=== PATIENT | male | born 1960 | race Caucasian/White ===

== ENCOUNTER 2024-04-25 09:20 | Emergency (ER) | payer MEDICARE, SELFPAY ==
--- NOTE | ~2024-04-25 | CT_ITS ---
Non-contrast Head CT History: Head injury Technique: Axial non-contrast imaging of the brain was performed. Dose reduction technique was used on this scan by utilizing automated exposure control and iterative reconstruction technique. The dose -length product (DLP) was 681.00 mGy-cm. Findings: There is no evidence of intracranial hemorrhage, mass lesion, or acute infarct. Brain par enchyma appears normal. The ventricles and subarachnoid spaces are normal in size. The calvarium ap pears normal. The visualized paranasal sinuses and mastoid air cells are clear. Impression: No significant abnormality seen. Reviewed, dictated and finalized at location . Impression: No significant abnormality seen.
[2024-04-25 09:24] VITALS: BP 144/89; PULSE 97; RESP 20; TEMP 36.8; O2SAT 97
--- NOTE | 2024-04-25 09:52 | ED.HEATRA ---
HPI - Head Injury General Chief complaint: Head Injury Stated complaint: head injury Time Seen by Provider: 04/25/24 09:24 History of Present Illness HPI Narrative: Patient is a 63-year-old male who presents ER with a head injury. Patient was playing tennis when he tripped and fell scraping his right knee and then striking his head into a chain-link fence. He did not lose consciousness. He has a laceration to the top his head. He is not on a blood thinner. No neck pain. Unknown last tetanus immunization. Related Data Allergies Allergy/AdvReac Type Severity Reaction Status Date / Time No Known Allergies Allergy Verified 04/25/24 09:30 Review of Systems Constitutional: Constitutional: Reports no additional constitutional complaints Cardiovascular: Cardiovascular: Reports no additional cardiovascular complaints Respiratory: Respiratory: Reports no additional respiratory complaints Integumentary/Breasts: Skin/Breast: Denies pruritus and Denies erythema Comments: Scalp laceration Neurologic: Reports system reviewed and no additional complaints, except as documented PMFSH Past Medical History Medical History (Updated 04/25/24 @ 10:54 by Miles Clark MD) Healthy adult male Exam Narrative: GENERAL: Well-appearing, well-nourished, and in no acute distress. HEAD: Normocephalic, 3 cm scalp laceration. EYES: PERRL and EOMI. ENT: Mucous membranes moist. EXTREMITIES: Normal range of motion. No edema. SKIN: Warm, dry, no rash. NEURO: Alert and oriented x3. PSYCH: Normal mood and affect. Course Course Emergency Course: patient resting comfortably. Informed results. Wound repaired. Discharged. Tetanus updated Vital Signs Vital signs: Vital Signs Temperature 98.2 F 04/25/24 09:24 Pulse Rate 97 04/25/24 09:24 Respiratory Rate 20 04/25/24 09:24 Blood Pressure 144/89 H 04/25/24 09:24 Pulse Oximetry 97 04/25/24 09:24 Oxygen Delivery Room Air 04/25/24 09:24 Temperature 98.2 F 04/25/24 09:24 Pulse Rate 73 04/25/24 10:56 Respiratory Rate 19 04/25/24 10:56 Blood Pressure 145/83 H 04/25/24 10:56 Pulse Oximetry 98 04/25/24 10:56 Oxygen Delivery Room Air 04/25/24 09:24 Procedures Laceration Laceration 1: Date: 04/25/24 Time: 10:45 Site: scalp Size (cm): 3 Description: linear Depth: simple, single layer ====== Skin Level ====== Skin layer closed with: paz Number of sutures: 6 ====== Subcutaneous Layer ====== ====== Muscle Layer ====== ====== Tendon Layer ====== MDM - Head Injury Imaging Data Radiologist's impression: ITS Impressions Head CT 04/25/24 10:16 Impression: No significant abnormality seen. Discharge Plan Discharge Clinical Impression: Laceration of scalp Patient Disposition: Home, Self-Care Condition: Stable Instructions: Laceration (ED), Staple Care (ED) Additional Instructions: Return to the ER if you have an infected wound, you have fever 100.4? F, or you have additional concerns. Remove your paz in 1 week. Follow-up/Referrals: PHYSICIAN,POUNCING LATHE OPERATOR [Non-Staff] -
[2024-04-25] MEDS: TETANUS,DIPHTHERIA,AC PERTUSSIS ADULT (0.5 ML) BOOSTRIX IM (09:56)
[2024-04-25 10:56] VITALS: BP 145/83; PULSE 73; RESP 19; O2SAT 98
== END 2024-04-25 10:59 | disposition home or self-care (01) ==
PROVIDERS: Emergency Provider Emergency Medicine
DX: S01.01XA Laceration without foreign body of scalp, initial encounter (principal); Z23 Encounter for immunization; W01.118A Fall on same level from slipping, tripping and stumbling with subsequent striking against other sharp object, initial encounter; Y93.73 Activity, racquet and hand sports
CPT/HCPCS: 12002; 70450; 90471; 90715; 99284